=== PATIENT | female | born 1980 | race Caucasian/White ===

== ENCOUNTER 2017-12-11 15:01 | Emergency (ER) | payer MEDICAID ==
[~2017-12-11] VITALS: Ht 154.9 cm; Wt 72.6 kg
[2017-12-11 15:14] VITALS: Ht 154.9 cm; Wt 72.6 kg
[2017-12-11 16:31] VITALS: BP 133/89
== END 2017-12-11 16:31 | disposition home or self-care (01) ==
LOC: ED 15:01
DX: R42 Dizziness and giddiness (principal); H92.01 Otalgia, right ear; R19.7 Diarrhea, unspecified

== ENCOUNTER 2019-09-05 23:39 | Emergency (ER) | payer MEDICAID ==
[~2019-09-05] VITALS: Ht 160 cm; Wt 86.2 kg
[2019-09-06 00:14] VITALS: Ht 160 cm; Wt 86.2 kg
[2019-09-06 02:31] VITALS: BP 132/96
== END 2019-09-06 02:31 | disposition home or self-care (01) ==
LOC: ED 23:39
DX: J06.9 Acute upper respiratory infection, unspecified (principal)
CPT/HCPCS: 87804